=== PATIENT | male | born 1950 | race Caucasian/White ===

== ENCOUNTER → 2024-04-29 12:39 | Outpatient (REF) | payer OTHER, SELFPAY | LOC: RAD 12:39 | PROVIDERS: ATTENDING PHYSICIAN Nurse Practitioner Family | DX: M79.89 Other specified soft tissue disorders (principal) | CPT/HCPCS: 93971 ==

== ENCOUNTER → 2024-07-20 13:56 | Outpatient (REF) | payer OTHER, SELFPAY | LOC: RAD 13:56 | PROVIDERS: ATTENDING PHYSICIAN Internal Medicine Interventional Cardiology; FAMILY PHYSICIAN Nurse Practitioner Family | DX: I73.9 Peripheral vascular disease, unspecified (principal); I77.1 Stricture of artery | CPT/HCPCS: 93925; 93930 ==

== ENCOUNTER → 2024-07-23 10:34 | Outpatient (REF) | payer OTHER, SELFPAY | LOC: RCS 10:34 | PROVIDERS: ATTENDING PHYSICIAN Internal Medicine Interventional Cardiology; FAMILY PHYSICIAN Nurse Practitioner Family | DX: I10 Essential (primary) hypertension (principal); R00.2 Palpitations | CPT/HCPCS: 93306 ==

== ENCOUNTER → 2024-09-10 10:06 | Outpatient (REF) | payer OTHER, SELFPAY | LOC: RAD 10:06 | PROVIDERS: ATTENDING PHYSICIAN Surgery Vascular Surgery; FAMILY PHYSICIAN Nurse Practitioner Family | DX: R09.89 Other specified symptoms and signs involving the circulatory and respiratory systems (principal); I71.43 Infrarenal abdominal aortic aneurysm, without rupture | CPT/HCPCS: 76770; 93880 ==

== ENCOUNTER 2024-11-12 19:06 | Inpatient (IN) | payer OTHER, SELFPAY ==
[2024-11-12] VITALS (14 sets, daily range): BP systolic 109–212; BP diastolic 70–140; BMI 31.5; BMI 30.5
[2024-11-12 14:35] LABS: Hematocrit 31.5 % (39.0-52.0); Hemoglobin 10.3 g/dL (13.0-18.0); Mean Corp Hgb Conc. 32.7 g/dL (33.0-37.0); Mean Corpuscular Volume 77.4 fL (80.0-94.0); Nucleated Red Blood Cells % 0 % (-); Platelet Count 174 10^3/uL (130-400); Red Cell Dist. Width 16.4 % (11.5-14.5)
[2024-11-12 14:51] LABS: ALT (SGPT) 13 U/L (0-50); AST (SGOT) 19 U/L (17-59); Albumin 4.2 g/dl (3.5-5.0); Alkaline Phosphatase 80 U/L (38-126); Blood Urea Nitrogen 11 mg/dl (9-20); Calcium 9.4 mg/dl (8.4-10.2); Carbon Dioxide 26 mmol/L (22-30); Chloride 102 mmol/L (98-107); Glucose 118 mg/dl (70-99); Potassium 3.1 mmol/L (3.5-5.1); Sodium 139 mmol/L (135-145); Total Protein 7.2 g/dl (6.3-8.2); eGFR > 60.00
[2024-11-12 15:01] LABS: COVID-19 Antigen Negative (Negative)
--- NOTE | 2024-11-12 17:34 | ED.GENMED ---
History of Present Illness
General
Chief Complaint: Breathing Problem
Time Seen by Provider: 11/12/24 17:05
History of Present Illness
History of Present Illness:
74-year-old male presents the emergency department for evaluation of dry cough and shortness of breath for the past 3 days. He went to urgent care where his EKG was noted to be abnormal and thus he was sent to the emergency department. He notes
that he was started by his machinist set up on diltiazem 2 days ago due to frequent premature contractions. Denies any chest pain, fever, or chills. Cough is dry nonproductive
Inside Polisher is DCA Dr Shaw
Review of Systems
Review of Systems
Allergies reviewed?: Yes
All Other Systems: ROS reviewed and negative except as documented in HPI and ROS
Phy Exam
Physical Exam
Physical Exam:
GEN: Well appearing, NAD, WDWN
HEENT: Oral mucosa moist, no scleral icterus, positive JVD
Cardiac: Irregular rhythm, no murmur, controlled rate
Lung: No respiratory distress, no tachypnea, faint crackles in the bases bilaterally
MSK: No gross deformity or injuries, 1+ pitting edema bilateral lower extremities
Skin: Good color, no pallor or jaundice, no rashes
Neuro: AO x3, moves all extremities freely
Psych: Calm, cooperative
Scores
Heart Failure Risk
Heart Failure Risk Score: Not Applicable
Course
Orders/Labs/Results
Orders:
Orders
11/12/24 14:01
Electrocardiogram (*1) Urgent
Reason for Study: Chest Pain
EKG- Treatment ONCE
CR Chest - 2 Views Urgent
Comment:
Reason For Exam: sob/cough
11/12/24 14:15
COVID-19 Antigen Urgent
Source: Nasal Swab
Complete Blood Count/With Diff Urgent
Comprehensive Metabolic Panel Urgent
Magnesium Urgent
Comment: ADD ON
NT-proBNP Urgent
Troponin I Urgent
Comment: ADD ON
11/12/24 Dinner
Cholesterol Lowering
Cholesterol Lowering: Sodium, 2 Gram
11/12/24 17:28
Add On- LAB Urgent
Tests Added?: troponin
Potassium Chloride [KCl] 40 meq PO NOW STA
11/12/24 17:54
Potassium Chloride [KCl] 20 meq 0.9% Sodium Chloride 250 ml [Nss] 250 ml IV NOW
11/12/24 18:18
Admit/Transfer Patient As Directed
Co-Sign Provider:
Level of Care: Inpatient admission
Assign to:: IVU
Physician / Group: romulo
Diagnosis: chf exacerbation
Reason for Hospitalization: chf exacerbation
Expected length of stay greater than two midnights?: Yes
ELOS- Estimated Length of Stay in days: 2
I certify the patient meets the requirements for IP care: Yes
PRN Pain Medication Management As Directed
May give lesser potent ordered pain med per pt: Yes
preference::
Protocol:: Medication orders for pain may be administered in a
manner that supports deferring to patient preference
when the pt is:
- Requesting an ordered lesser potent pain medication.
Least to most potent pain medications are defined
as: acetaminophen < NSAID < tramadol < opioids
(morphine, oxycodone, hydromorphone).
- Requesting a lesser dose of the same medication IF
ORDERED.
- Requesting a less intrusive route of administration
if both routes are prescribed by the provider (PO <
IV).
11/12/24 18:19
Code Status As Directed
Resuscitation Status: Do not resuscitate
Reached after discussion with pt or family/Healthcare POA: Yes
DNR Bracelet Application ONCE
11/12/24 18:52
EKG [Electrocardiogram (*1)] Urgent
Reason for Study: Tachycardia
EKG- Treatment ONCE
11/12/24 18:57
Add On- LAB Stat
Tests Added?: ADD ON
11/12/24 18:58
Code Status As Directed
Resuscitation Status: Full Code
11/12/24 19:30
Ethacrynate Sodium [Edecrin] 50 mg Empty Viaflex Container 100 ml [Viaflex Empty Container] 0 ml IV ONCE
Furosemide [Lasix] 20 mg IV ONCE ONE
11/12/24 21:43
Heparin 5,000 units SC Q12
11/12/24 21:43
Activity As Directed
Activity Level: As Tolerated
Intake/ Output As Directed
Frequency: q12h
Patient Education As Directed
Type: CHF folder
Comment: give on admission. Document in Interdisciplinary Education record
Sleep Apnea Assessment by RN As Directed
Comment:
Physician Instructions:
Vital Signs As Directed
Frequency: Other
Additional Instructions:: Q12 or per unit guidelines if more frequent.
Weight As Directed
Frequency: Daily
Type of Scale: Standing Scale
Comment: Daily morning weight. If unable to stand, use balanced bed scale.
Weight As Directed
Frequency: Once
Type of Scale: Standing Scale
Comment: Upon Admission. If unable to stand, use balanced bed scale.
Pulse Ox/cont/shift [RESP] Routine
Quantity: 1
Special Instructions: Daily pulse oximetry at rest. If greater than 92% at rest also obtain pulse oximetry
while ambulating as tolerated.
DX Deep Vein Thrombosis Video Routine
11/13/24 06:00
Complete Blood Count/No Diff IN AM
11/13/24 08:00
Bumetanide [Bumex] 1 mg IV DAILY
11/15/24 11:00
DC Protocol for Telemetry ONCE
Abnormal Lab Results
11/12/24
14:15
RBC 4.07 L 10^6/uL
(4.70-6.10)
Hgb 10.3 L g/dL
(13.0-18.0)
Hct 31.5 L %
(39.0-52.0)
MCV 77.4 L fL
(80.0-94.0)
MCH 25.3 L pg
(27.0-31.0)
MCHC 32.7 L g/dL
(33.0-37.0)
RDW 16.4 H %
(11.5-14.5)
Absolute Neuts (auto) 6.9 H 10^3/uL
(1.4-6.5)
Absolute Monos (auto) 0.9 H 10^3/uL
(0.1-0.6)
Lymphocytes % 17.5 L %
(20.5-51.1)
Potassium 3.1 L mmol/L
(3.5-5.1)
Glucose 118 H mg/dl
(70-99)
Total Bilirubin 1.7 H mg/dl
(0.2-1.3)
Troponin I 0.125 H* ng/ml
11/12/24 14:15
11/12/24 14:15
Vital Signs
Initial and Last Documented VS:
Initial Vital Signs
Temp Pulse Resp BP Pulse Ox
98.8 F 78 20 121/99 95
11/12/24 13:57 11/12/24 13:57 11/12/24 13:57 11/12/24 13:57 11/12/24 13:57
Last Documented Vital Signs
Temp Pulse Resp BP Pulse Ox
98.4 F 89 20 188/85 95
11/12/24 21:09 11/12/24 23:33 11/12/24 21:09 11/12/24 23:33 11/12/24 21:09
Procedures
IV Access
Indication: RN unable to obtain and Physician skill needed
Performed by:: Gonzalez Mendez PA-C
Site:: R AC
Gauge:: 20
Ultrasound Guidance: Yes
MDM/Problems Addressed
MDM/Problems Addressed:
74-year-old male presenting with dry cough found to be in acute CHF evidenced by volume overload, pulmonary edema on chest x-ray, and elevated troponin proBNP. EKG initially notable for sinus with a right bundle branch block and frequent
ventricular ectopy however patient abruptly developed an intermittent tachycardia with couplets, triplets, and quick couplets of multifocal PVCs. Telemetry strips were then reviewed with cardiology on-call who recommends IV and oral beta-blockers
and electrolyte repletion which was already initiated with IV magnesium bolus and IV and oral potassium repletion. Patient will be admitted to the IVU for further management, diuresis was not initiated until after adequate repletion of electrolytes
Comment
Comment:
EKG independently interpreted by me shows normal sinus rhythm with frequent atrial and ventricular ectopy, similar to telemetry monitoring, no ST changes concerning for ischemia
*Pulse Oximetry
SaO2: 95
Oxygen Mode of Delivery: Room air
Patient hypoxic: no
*Critical Care Note
Total Time (30-74mins, 75-104mins- exclusive of procedures): 30 minutes
comment:
Critical care time: 30 minutes
Critical care time was exclusive of: Separately billable procedures, treating other patients, and teaching time
Critical care was necessary to treat or prevent imminent or life-threatening deterioration of the following conditions: Tachyarrhythmia, CHF
Critical care time spent personally by me on the following activities:
[x] Review of old charts
[x] Obtaining history from patient or surrogate
[x] Ordering and review of the laboratory studies
[x] Ordering and review of radiographic studies
[x] Ordering and performing treatments and interventions
[x] Patient patient's response to treatment
[x] Development of treatment plan with patient or surrogate
ED Attending Note
-
Portions of this chart may have been created with voice recognition software.� Occasional wrong word or��sound alike� substitutions may have occurred due to the inherent limitations of voice recognition software.
Discharge Plan
Departure
Patient Disposition: Admit
Date of Disposition: 11/12/24
Time of Disposition: 17:56
Admit to: Telemetry
Presentation/result/management discussed w/ accepting MD/DO: Hospitalist
Discharge Problem:
Acute heart failure with preserved ejection fraction (HFpEF), Acute hypokalemia
Interventions
Interventions:
*Risk Screen - Suicide Last Done: 11/12/24 13:57
*General Assessment Last Done: 11/12/24 13:57
*Neglect/Abuse Screening Last Done: 11/12/24 13:57
*ED- Fall Risk Assessment Last Done: 11/12/24 17:59
*ED COVID-19 Vaccine History Last Done: 11/12/24 21:18
*Nursing Disposition Last Done: 11/12/24 21:16
ED- Cardiac Assessment Last Done: 11/12/24 20:21
ED- Pulmonary Assessment Last Done: 11/12/24 20:21
Discharge Date and Time
Discharge Date/Time: 11/12/24 21:17
[2024-11-12] MEDS: KCL 40 MEQ PO (17:55)
--- NOTE | 2024-11-12 18:21 | HPS.HSE ---
Addendum entered and electronically signed by Thomas Grier MD 11/12/24 18:58:
Patient wants to be full code.
Original Note:
Family Physician
-
Family Physician: * NONE
Chief Complaint
-
shortness of breath
History of Present Illness
74-year-old male past medical history of paroxysmal atrial flutter, hypertension, hyperlipidemia, diabetes, prostate cancer status post radiation, COPD, osteoarthritis, carotid artery stenosis, PAD, abdominal aortic aneurysm, presenting with dry
nonproductive cough and shortness of breath for the past 2 days. Shortness of breath worse when lying down flat. He went to urgent care and EKG was noted to be abnormal and he was sent to the emergency room. He was started on diltiazem 2 days ago
by his carpentry specialist Dr. Shaw due to frequent PVCs. He was also given Lasix for 3 days by his carpentry specialist. He has increased lower extremity edema. Denies any chest pain, fevers or chills. Denies sore throat.
He did get blurry vision after taking Lasix and felt weird.
Medical History
Past Medical History
Past Medical History: Reports Other (paroxysmal atrial flutter, hypertension, hyperlipidemia, diabetes, prostate cancer status post radiation, COPD, osteoarthritis, carotid artery stenosis, PAD, abdominal aortic aneurysm)
Past Surgical History: Reports None
Social History
Tobacco: Former Smoker
Alcohol: None
Drug: None
Family History
Family History: Not pertinent
Allergies / Home Medications
Allergies reflects when Allergies were last updated in [facility].
Home Medications with original date entered in [facility]
Allergy/Medication List:
Allergies
Allergy/AdvReac Type Severity Reaction Status Date / Time
No Known Allergies Allergy Verified 11/12/24 14:00
Review of Systems
-
Constitutional: Reports No Symptoms
EENT: Reports No Symptoms
Respiratory: Reports See HPI
Cardiac: Reports See HPI
Abdomen/GI: Reports No Symptoms
: Reports No Symptoms
Musculoskeletal: Reports No Symptoms
Skin: Reports No Symptoms
Neurological: Reports No Symptoms
Endocrine: Reports No Symptoms
Hematologic/Lymphatic: Reports No Symptoms
Psych: Reports No Symptoms
Physical Exam
Vital Signs
Vital Signs
Temp Pulse Resp BP Pulse Ox
98.8 F 100 17 121/99 95
11/12/24 13:57 11/12/24 18:00 11/12/24 17:30 11/12/24 13:57 11/12/24 17:35
Physical Exam
General: Well Developed, Well Nourished and No Apparent Distress
HEENT: NormoCephalic, Moist mucous membranes and Atraumatic
Respiratory: Clear
Cardiac: S1/S2, Regular Rhythm and Peripheral Edema; No Murmur or Rub
GI: Soft, Non Tender, Non Distended and Normal Bowel Sounds; No Organomegaly
Rectal: Deferred by Provider
Musculoskeletal: No Clubbing, No Cyanosis and No Edema
Skin: No Rash
Neuro: Nonfocal/grossly intact
Laboratory Results
-
11/12/24 14:15
11/12/24 14:15
Laboratory Results
Total Bilirubin 1.7 mg/dl (0.2-1.3) H 11/12/24 14:15
AST 19 U/L (17-59) 11/12/24 14:15
ALT 13 U/L (0-50) 11/12/24 14:15
Alkaline Phosphatase 80 U/L (38-126) 11/12/24 14:15
Data Reviewed
-
Lab Data: Labs Reviewed by me
Old Records: Reviewed
Impression/Plan
-
IMPRESSION:
PLAN:
# Acute CHF exacerbation
- Chest x-ray shows subtle increased interstitial markings within both lungs with small bilateral pleural effusions,
- Cardiac BNP 7200
- COVID-negative
-Check I's and O's, daily weights
- Bumex 1 mg daily
- Cardiology consulted
# Recent PVCs
- Continue diltiazem
# Hypokalemia
- Replete potassium
- Check magnesium
Paroxysmal atrial flutter
-Continue diltiazem
Essential hypertension
Hyperlipidemia
Type 2 diabetes
Prostate cancer status post radiation
COPD
Former smoker
Osteoarthritis
Carotid artery stenosis
PAD
Abdominal aortic aneurysm
Chronic anemia
DNR/DNI
DVT prophylaxis�heparin
Cardiac diet
[2024-11-12] MEDS: KCL 260 MEQ IV (18:26)
[2024-11-12 18:47] LABS: Troponin I 0.125 ng/ml
--- NOTE | 2024-11-12 19:30 | W.PN.UPDATE ---
Addendum entered and electronically signed by Thomas Grier MD 11/12/24 20:51:
Patient also given Magnesium infusion.
Original Note:
Update Note
Progress Note Update
Patient developed asymptomatic tachycardia with telemetry monitoring showing PVCs, then transiently in narrow complex rhythm heart rate up to 150s and then heart rate went down to 80s. Cardiology was notified who recommended Lopressor, metoprolol
[address] of diltiazem. Patient will be upgraded to IVU.
[2024-11-12] MEDS: MAGNESIUM SULFATE 50 IV (19:32)
[2024-11-12] MEDS: TOPROL XL 50 MG PO (19:32)
[2024-11-12] MEDS: LOPRESSOR 5 MG IV (19:33)
[2024-11-12] MEDS: LASIX 20 MG IV (20:35)
[2024-11-12 21:31] LABS: Magnesium 1.7 mg/dl (1.6-2.3)
[2024-11-12] MEDS: HEPARIN 5000 UNITS SC (22:03)
[2024-11-13] VITALS (20 sets, daily range): BP systolic 120–202; BP diastolic 71–108
[2024-11-13 00:32] LABS: Blood Urea Nitrogen 12 mg/dl (9-20); Calcium 9.3 mg/dl (8.4-10.2); Carbon Dioxide 28 mmol/L (22-30); Chloride 103 mmol/L (98-107); Estimated Creatinine Clearance 67 ml/min; Glucose 132 mg/dl (70-99); Magnesium 1.8 mg/dl (1.6-2.3); Potassium 3.2 mmol/L (3.5-5.1); Sodium 140 mmol/L (135-145); eGFR > 60.00
[2024-11-13] MEDS: MAGNESIUM SULFATE 50 IV (01:18)
[2024-11-13] MEDS: BUMEX 1 MG IV ×2 (01:30→09:33)
[2024-11-13] MEDS: KCL 270 MEQ IV (01:30)
[2024-11-13] MEDS: MORPHINE SULFATE 1 MG IV (01:32)
--- NOTE | 2024-11-13 01:46 | PTCARENOTE ---
Received pt into room 2243 from ED RN via stretcher @ approx 2100. Tele applied to pt, SR with BBBC and frequent PVC's. pt denies any CP. pt GONSALVES, 2L02 applied, sating 94%. HR 80's, BP 170's-180's/80's-90's. Manuela Collins NP made aware. Instructed
RN to keep pt bedrest for now. Repeat mag and K labs ordered and obtained. Resulted as K 3.2 and mag 1.8. CORRECTIONAL MAINTENANCE TECHNICIAN ordered IV K and mag. pt wheezy, and dyspneic. RT and CORRECTIONAL MAINTENANCE TECHNICIAN at bedside. Morphine and Bumex orders obtained/carried out--see MAY. Condom
catheter applied to pt to maintain bedrest status. pt resting comfortably. Call rihcmond within reach.
[2024-11-13] MEDS: LOPRESSOR 100 MG PO ×3 (03:09→20:07)
[2024-11-13] MEDS: APRESOLINE 10 MG IV ×3 (05:20→21:18)
--- NOTE | 2024-11-13 05:28 | PTCARENOTE ---
pt BP @0300 179/83, Manuela Collins NP ordered one time dose of PO Lopressor, administered to pt. @ approx 0515 pt BP remains elevated 189/91, PRN hydralazine administered per order-- see MAR for further details.
[2024-11-13 06:30] LABS: Hematocrit 31.2 % (39.0-52.0); Hemoglobin 10.5 g/dL (13.0-18.0); Mean Corp Hgb Conc. 33.7 g/dL (33.0-37.0); Mean Corpuscular Volume 76.5 fL (80.0-94.0); Platelet Count 179 10^3/uL (130-400); Red Cell Dist. Width 16.3 % (11.5-14.5)
[2024-11-13 06:47] LABS: ALT (SGPT) 14 U/L (0-50); AST (SGOT) 19 U/L (17-59); Albumin 4.1 g/dl (3.5-5.0); Alkaline Phosphatase 88 U/L (38-126); Blood Urea Nitrogen 13 mg/dl (9-20); Calcium 9.4 mg/dl (8.4-10.2); Carbon Dioxide 25 mmol/L (22-30); Chloride 103 mmol/L (98-107); Estimated Creatinine Clearance 74 ml/min; Glucose 170 mg/dl (70-99); Potassium 3.5 mmol/L (3.5-5.1); Sodium 140 mmol/L (135-145); Total Protein 7.3 g/dl (6.3-8.2); eGFR > 60.00
--- NOTE | 2024-11-13 07:03 | W.PN.UPDATE ---
Update Note
Progress Note Update
K+ and Mag repleted twice. SOB but speaks in complete sentences without difficulty. Added hydralazine IV for prn SBP >180. Use R arm only. PVCs on tele. Bumex x1 overnight. Cards consult. Metoprolol 100 mg x1 overnight. 91% RA added O2 2L. HR
increases to 120s with activity. Encouraged him to stay in bed for the night.
[2024-11-13 07:06] LABS: Troponin I 0.105 ng/ml
--- NOTE | 2024-11-13 07:30 | PTCARENOTE ---
Assumed care of pt from prev nsg shift; Pt AAOx3 w/no c/o CP or SOB. Pt w/VSS w/HR in the 90's & BP 177/75. Pt is SR w/freq PVC's on telemetry monitoring. Pt states he does feel 'fluttering in his heart' when he has PVC's, but reports no CP or
dizziness. Discussed pt's med list w/pt & list updated by this RN after speaking further w/Cardiology HAND TUBE BENDER in to see pt. Pt advised of plan of care for the day. Pt w/call [place] within reach.
--- NOTE | 2024-11-13 07:36 | W.PN.HOSP.TC ---
Today's Communication/Plan
-
check echo
start farxiga
check iron studies
ISS
[id number]
Assessment / Plan
Assessment / Plan
74-year-old male past medical history of paroxysmal atrial flutter, hypertension, hyperlipidemia, diabetes, prostate cancer status post radiation, COPD, osteoarthritis, carotid artery stenosis, PAD, abdominal aortic aneurysm, presented with dry
nonproductive cough, LE edema and shortness of breath.
# Acute HFpEF exacerbation
# elevated trops
- Chest x-ray shows subtle increased interstitial markings within both lungs with small bilateral pleural effusions,
- Cardiac BNP 7290
- COVID-negative
- Check I's and O's, daily weights
- Bumex 1 mg IV daily; lost 3 lbs overnight
- Start Farxiga
- lopressor 100mg bid and amio 400mg bid per cardio
- check echo
- start asa 81
Echocardiogram July 23, 2024:LVEF of 56%, mild mitral regurgitation and no other significant abnormalities.
# Elevated trops
- trops peaked 0.125:Suspect nonischemic myocardial injury secondary to acute heart failure exacerbation and atrial arrhythmias with rapid ventricular response
# Hypokalemia
# hypomagnesia
- Repleted; goal to Keep K greater than 4, mag greater than 2
#Paroxysmal atrial flutter/atrial tachycardia with rapid ventricular response
-Defer addition of eliquis to cardio
#Essential hypertension
#Hyperlipidemia
- continue home lipitor
#Type 2 diabetes
-hold metformin and glipizide.
-iss
#Prostate cancer status post radiation
#COPD
#Former smoker
#Osteoarthritis
#Carotid artery stenosis
#PAD
#Abdominal aortic aneurysm
#Chronic anemia: likely multifactorial
-start iron
Full code
DVT prophylaxis�heparin
Cardiac diet
Anticipated Discharge: 24 - 48 hours
Subjective/Interval History
-
Date of Service: November 13, 2024
seen and examined at bedside. Tachy with elevated blood pressure. afebrile. offers no new complaints
Objective Data
-
Labs:
Laboratory Results
11/13/24 11/13/24
00:02 06:16
WBC 7.8
Hgb 10.5 L
Hct 31.2 L
Plt Count 179
Sodium 140 140
Potassium 3.2 L 3.5
Chloride 103 103
Carbon Dioxide 28 25
BUN 12 13
Creatinine 0.9 0.8
Glucose 132 H 170 H
Calcium 9.3 9.4
Total Bilirubin 2.2 H
AST 19
ALT 14
Alkaline Phosphatase 88
Vital Signs:
Vital Signs
Temp Pulse Resp BP Pulse Ox
98.2 F 92 14 177/75 97
11/13/24 06:57 11/13/24 07:15 11/13/24 06:57 11/13/24 06:17 11/13/24 06:57
I&O
11/12/24 11/13/24 11/14/24
06:59 06:59 06:59
Output Total 1700 / 1700
Balance -1700 / -1700
Review of Systems
-
History Source: Patient
All other systems: Reviewed and negative (unless documented)
Physical Exam
-
General: Well Developed and No Apparent Distress
HEENT: Normocephalic and Moist Mucous Membranes
Respiratory: Decreased Breath Sounds
Cardiac: S1/S2 and Tachycardic
GI: Soft and Nontender
Musculoskeletal: Edema, Right Lower Extrem and Edema, Left Lower Extrem
Skin: Warm and Dry
Neuro: Awake, Alert and Oriented
Psych: Calm
Data Reviewed
-
Diagnostic Radiology: Report Reviewed by me
Labs: Labs Reviewed by me, Discussed with Physician and Discussed with Patient
--- NOTE | 2024-11-13 07:55 | CON.CAR ---
Addendum entered and electronically signed by Shahram Walden MD 11/13/24 09:14:
I saw and examined the patient.
The Machine Operator Assistant's note was reviewed and I agree with the note.
Comment:
GEN: No distress, awake, Ox3
HEENT: supple, anicteric, mmm
LUNGS: Decreased breath sound
CV: Reg with ectopy, S1/S2, 1/6 syst LSB, S3+
ABD: soft, BS+, NT/ND
EXT: + edema
NEURO: Gross non-focal
SKIN: No rash
PLan:
74-year-old male with past medical history of hypertension, hyperlipidemia, SVT, premature beats, diabetes, peripheral vascular disease, prostate cancer and right bundle branch block presents with 3 to 4 days of shortness of breath, orthopnea,
weight gain, and lower extremity edema. He was recently started on Lasix 2 weeks ago and felt poorly and stopped the medication. He was seen by electrophysiology for palpitations/atrial tachycardia and was placed on diltiazem. He has had
continued issues with electrolyte abnormalities. Upon arrival in the emergency room he was found to have a tachycardia possibly atrial flutter/atrial tachycardia with right bundle branch block. He converted to sinus rhythm but continues to have
paroxysms of irregular heartbeat.
He presents with acute on chronic heart failure with preserved ejection fraction, abnormal troponin and continued atrial arrhythmias.
Start diuresis with IV Bumex.
He he currently remains in sinus rhythm but continues to have episodes of atrial tachycardia/possibly atrial flutter. Will start anticoagulation at this time. I suspect on one of his EKGs he is in an atrial flutter. Will review with
electrophysiology. Will stop diltiazem and continue metoprolol. Will start amiodarone 400 mg p.o. twice daily to help maintain sinus rhythm.
His troponin is 0.1. I suspect this is a nonischemic myocardial injury but we will continue to follow. Check echocardiogram to reevaluate LVEF. Previous echo this year had a preserved ejection fraction. If ejection fraction is markedly reduced
would consider ischemic evaluation including cardiac cath.
Blood pressure remains elevated. Continue metoprolol for now. Pending results of echo will consider VERONICA/ARB versus spironolactone. Creatinine is normal.
Continue Farxiga. Start aspirin 81 mg daily.
Original Note:
Consultation
Consultation Request
Date/Time Consultation Requested: 11/12/2024
Date/Time Consultation Performed: 11/13/2024
Requesting Provider: Dr. Grier
Performing Provider: Tesha May PA-C for Dr. Walden
Reason for Consultation: Heart failure, abnormal troponin
Medical History
-
History of Present Illness:
Patient is a 74-year-old male with past medical history significant for hypertension, hyperlipidemia, PVCs, PAC, atrial tachycardia, left subclavian stenosis, type 2 diabetes, diabetic/peripheral neuropathy, prostate cancer status post XRT,
anxiety/depression, multi nodule goiter, right bundle branch block, chronic anemia and obesity who presented to emergency department 11/12/2024 with worsening shortness of breath, lower extremity edema, orthopnea/PND and weight gain. Seen in
cardiology office 11/03/2024 and was felt to have evidence of mild volume overload and was started on Lasix. Patient reports he only took 3 days of medication and felt weird and had some blurry vision so he stopped taking. He was also transition
from nifedipine to diltiazem due to complaints of palpitations and PACs/PVCs and atrial tachycardia on outpatient monitor. Patient reports he started taking this 3 days prior to admission. Chest x-ray showed increased interstitial markings
concerning for heart failure with small bilateral pleural effusions. proBNP elevated at 7290. EKG demonstrated sinus rhythm with right bundle branch block and PVCs. Troponin initially elevated at 0.125. Found to have electrolyte derangement with
hypokalemia with potassium of 3.1 and hypomagnesemia. Electrolytes with ongoing repletion. Patient was given IV Lasix 20 mg in emergency department then later that evening IV Bumex x 1. Patient developed asymptomatic tachycardia on monitor with
narrow complex rhythm with heart rates in the 150s. He was provided IV Lopressor with improvement of heart rate.
At time of this evaluation patient resting comfortably in bed on oxygen. Reports good diuretic response to IV diuresis. Feels edema is significantly better. Continues to have orthopnea and PND and had difficulty sleeping last night.
Past medical history:
Paroxysmal atrial flutter
Paroxysmal atrial tachycardia
PVCs/PACs
Right bundle branch block
Hypertension
Hyperlipidemia
Left subclavian stenosis
Type 2 diabetes
Diabetic/peripheral neuropathy
Prostate cancer status post XRT 2014
Anxiety depression
Multinodular goiter
Chronic anemia
Past Medical History
Past Medical History: Other (See HPI)
Past Surgical History: None
Social History
Tobacco: Former Smoker
Alcohol: None
Drug: None
Employment: Retired
Family History
Family History: Other (Father had cardiac disease and from complications during heart surgery. Mother at 70 due to melanoma with metastasis to brain)
Allergies / Home Medications
Allergy/AdvReac Type Severity Reaction Status Date / Time
No Known Allergies Allergy Verified 11/12/24 14:00
�Medication �Instructions �Recorded �Confirmed �Type
aspirin 325 mg tablet 325 mg PO DAILY 11/12/24 11/13/24 History
atorvastatin 40 mg tablet 40 mg PO DAILY 11/12/24 11/13/24 History
diltiazem HCl 120 mg capsule,24 120 mg PO DAILY 11/12/24 11/13/24 History
hr,extended release
glipizide 5 mg tablet 5 mg PO DAILY 11/12/24 11/13/24 History
metformin 1,000 mg tablet 1,000 mg PO BID 11/12/24 11/12/24 History
metoprolol tartrate 100 mg tablet 100 mg PO BID 11/12/24 11/12/24 History
tamsulosin 0.4 mg capsule 0.4 mg PO DAILY 11/12/24 11/12/24 History
gabapentin 300 mg capsule 300 mg PO BID 11/13/24 11/13/24 History
Review of Systems
-
History Source: Patient
All other systems: Negative unless noted
Physical Exam
Vital Signs
Temp Pulse Resp BP Pulse Ox
98.2 F 92 14 177/75 97
11/13/24 06:57 11/13/24 07:15 11/13/24 06:57 11/13/24 06:17 11/13/24 06:57
GEN: No distress, awake, Ox3, sitting in bed wearing oxygen
HEENT: supple, anicteric, mmm
LUNGS: Fine crackles and mildly decreased at bases otherwise CTA, no wheezes/rales, wearing oxygen 2 L
CV: Reg with occasional ectopy, S1/S2, no murmur, rub or gallop
ABD: soft, BS+, NT/ND
EXT: +1 right lower extremity edema, trace left lower extremity edema
NEURO: Gross non-focal
SKIN: No rash, warm, dry, pink
Lab Results
11/13/24 06:16
11/13/24 06:16
Troponin I 0.105 ng/ml H* 11/13/24 06:16
Etb-P-Fzeonkcfxav Pept 7290 pg/ml 11/12/24 14:15
Impression / Plan
-
PCP: Marianne Pacheco
Industrial Relations Officer: Dominique Shaw
Impression:
Presented 11/12/2024 with worsening shortness of breath, lower extremity edema, orthopnea/PND and weight gain
Acute heart failure with preserved ejection fraction, proBNP 7290
Abnormal troponin, peak 0.125
Hypokalemia
Hypomagnesemia
Paroxysmal atrial flutter/atrial tachycardia with rapid ventricular response
Paroxysmal atrial flutter
Paroxysmal atrial tachycardia
PVCs/PACs
Right bundle branch block
Hypertension
Hyperlipidemia
Left subclavian stenosis
Type 2 diabetes
Diabetic/peripheral neuropathy
Prostate cancer status post XRT 2014
Anxiety depression
Multinodular goiter
Chronic anemia
7 day Outpatient monitor starting June 26, 2024: Predominantly normal sinus rhythm, 104 episodes of nonsustained atrial tachycardia, 7% PACs, 9% PVCs with 33 patient triggered symptom events correlating with atrial tachycardia PACs and PVCs.
Echo 11/13/2024:pending
Echocardiogram July 23, 2024:LVEF of 56%, mild mitral regurgitation and no other significant abnormalities.
Echo from 2022: LVEF 50-55% mild MR, mild LAE, trace TR, mild to moderate aortic sclerosis
Plan:
-Presented 11/12/2024 with worsening shortness of breath, lower extremity edema, orthopnea/PND and weight gain.
-Acute heart failure with preserved ejection fraction, proBNP 7290
Ongoing diuresis with IV Bumex. Patient reports good response with at least 4 to 5 pound weight loss overnight.
Ongoing repletion and monitoring of electrolytes. Keep K greater than 4, mag greater than 2
Check echocardiogram
New to [facility] this admission, continue beta-nadiya.
-Abnormal troponin, peak 0.125
EKG shows sinus rhythm with right bundle branch block without ischemia and patient denies chest pain
Suspect nonischemic myocardial injury secondary to acute heart failure exacerbation and atrial arrhythmias with rapid ventricular response
Will check echocardiogram. If abnormal will need to move forward with ischemic evaluation. If unchanged from July 2024 can consider outpatient ischemic evaluation
Continue atorvastatin
-Patient has history of atrial arrhythmias on prior outpatient monitor. Previously had atrial tachycardia. EKG during this admission more consistent with atrial flutter with rapid ventricular response
Patient already on high dose Lopressor at 100 mg twice a day. Diltiazem not ideal medication given acute heart failure.
Start amiodarone 400 mg twice a day
Monitor QTc
Will need anticoagulation with Eliquis 5 mg twice a day. Will hold on starting this until echo completed in case patient needs invasive ischemic workup. Discontinue aspirin once anticoagulation started
Case management consultation for cost analysis for Eliquis
-Patient's blood pressures was elevated overnight. Reports blood pressures normally at home in the 110's-120's/70's. Continue Lopressor 100 mg BID. Patient was on nifedipine as outpatient. Would hold on calcium channel nadiya. Can utilize
hydralazine if needed. To consider adding VERONICA-I/ARB if blood pressure does not improve with diuresis. Patient thinks anxiety may be can playing a part in his elevated blood pressure this admission
Plan discussed with patient, nursing, hospitalist/resident
[facility] 11/13/2024:
Patient is a 74-year-old male with past medical history significant for hypertension, hyperlipidemia, PVCs, PAC, atrial tachycardia, left subclavian stenosis, type 2 diabetes, diabetic/peripheral neuropathy, prostate cancer status post XRT,
anxiety/depression, multi nodule goiter, right bundle branch block, chronic anemia and obesity who presented to emergency department 11/12/2024 with worsening shortness of breath, lower extremity edema, orthopnea/PND and weight gain. Seen in
cardiology office 11/03/2024 and was felt to have evidence of mild volume overload and was started on Lasix. Patient reports he only took 3 days of medication and felt weird and had some blurry vision so he stopped taking. He was also transition
from nifedipine to diltiazem due to complaints of palpitations and PACs/PVCs and atrial tachycardia on outpatient monitor. Patient reports he started taking this 3 days prior to admission. Chest x-ray showed increased interstitial markings
concerning for heart failure with small bilateral pleural effusions. proBNP elevated at 7290. EKG demonstrated sinus rhythm with right bundle branch block and PVCs. Troponin initially elevated at 0.125. Found to have electrolyte derangement with
hypokalemia with potassium of 3.1 and hypomagnesemia. Electrolytes with ongoing repletion. Patient was given IV Lasix 20 mg in emergency department then later that evening IV Bumex x 1. Patient developed asymptomatic tachycardia on monitor with
narrow complex rhythm with heart rates in the 150s. He was provided IV Lopressor with improvement of heart rate.
At time of this evaluation patient resting comfortably in bed on oxygen. Reports good diuretic response to IV diuresis. Feels edema is significantly better. Continues to have orthopnea and PND and had difficulty sleeping last night.
Data Reviewed
-
EKG: Report Reviewed by me, Discussed with Physician, Discussed with Nurse and Discussed with Patient
Radiology: Report Reviewed by me, Discussed with Physician, Discussed with Nurse and Discussed with Patient
Labs: Labs Reviewed by me, Discussed with Physician, Discussed with Nurse and Discussed with Patient
Old Records: Reviewed
[2024-11-13 08:54] LABS: Iron 35 ug/dl (49-181)
[2024-11-13 09:03] LABS: Total Iron Binding Capacity 363 ug/dl (261-462)
[2024-11-13] MEDS: FARXIGA 10 MG PO (09:31)
[2024-11-13] MEDS: FLUSH (NSS) 1 FLUSH IV (09:31)
[2024-11-13] MEDS: PACERONE 400 MG PO ×2 (09:32→20:07)
[2024-11-13] MEDS: HEPARIN 5000 UNITS SC ×2 (09:32→20:07)
--- NOTE | 2024-11-13 10:45 | CM ---
Reviewed chart. Met with Mr. Paulino to review discharge plans. He states prior to admission to resides with his sister in a one and half story home without any steps to enter. He states he has one step to get to his bedroom and full bathroom. He
states he does not have a bathroom on the first floor. He states prior to admission he was independent with ambulation and adls. He states he does not have any DME in the home. He states he has a prescription plan and uses [facility] in
[place]. Telephone call to [employer] ,[phone] to check on his coverage for Eliquis 5 mg po bid. His co-pay would be $12.15 for a 30 day supply and also $12.15 for a 90 day supply. He is agreeable to the co-pay. He states he has never needed VNA
services or SNF/Rehab. Medical work-up in progress. The discharge plan is to return home with his sister when medically stable.
[2024-11-13 10:54] LABS: Ferritin 88.0 ng/ml (17.9-464.0)
[2024-11-13 11:19] LABS: Hepatitis C Antibody Negative (Negative)
[2024-11-13 11:26] LABS: Folate 10.9 ng/ml (2.76-20); Vitamin B12 228 pg/ml (239-931)
[2024-11-13 11:42] LABS: Glucose - Point of Care 168 mg/dl (70-99)
[2024-11-13] MEDS: LOW STRENGTH ASPIRIN 81 MG PO (12:10)
[2024-11-13] MEDS: FLUSH (NSS) 2 FLUSH IV ×2 (12:11→15:55)
[2024-11-13] MEDS: NOVOLOG FLEXPEN-LOW RESISTANCE SC ×2 (13:03→16:43)
[2024-11-13 15:03] LABS: Glucose - Point of Care 174 mg/dl (70-99)
[2024-11-13] MEDS: FERRLECIT 110 MG IV (15:54)
[2024-11-13 16:41] LABS: Glucose - Point of Care 151 mg/dl (70-99)
[2024-11-13 21:16] LABS: Glucose - Point of Care 139 mg/dl (70-99)
--- NOTE | 2024-11-13 23:46 | PTCARENOTE ---
Patient received at change of shift resting in the bed. Sinus rhythm on telemetry with frequent PVCs and runs of Atach. BP elevated, PRN hydralazine given as ordered. Oxygen saturation 94-97% on room air. Plan of care discussed. Discussed amiodarone
and HF booklet. The patient denies pain. Call richmond within reach. Care ongoing.
[2024-11-14] VITALS (21 sets, daily range): BP systolic 138–223; BP diastolic 83–177; PULSE 84–93; BMI 30.1
[2024-11-14] MEDS: LOPRESSOR 5 MG IV ×2 (03:21→04:40)
[2024-11-14 04:32] LABS: Hematocrit 34.6 % (39.0-52.0); Hemoglobin 11.4 g/dL (13.0-18.0); Mean Corp Hgb Conc. 32.9 g/dL (33.0-37.0); Mean Corpuscular Volume 76.0 fL (80.0-94.0); Platelet Count 231 10^3/uL (130-400); Red Cell Dist. Width 16.0 % (11.5-14.5)
[2024-11-14] MEDS: VALIUM INJECTION 2 MG IV ×2 (04:33→05:46)
[2024-11-14 04:45] LABS: Blood Urea Nitrogen 14 mg/dl (9-20); Calcium 10.1 mg/dl (8.4-10.2); Carbon Dioxide 23 mmol/L (22-30); Chloride 101 mmol/L (98-107); Estimated Creatinine Clearance 66 ml/min; Glucose 186 mg/dl (70-99); Potassium 3.0 mmol/L (3.5-5.1); Sodium 139 mmol/L (135-145); eGFR > 60.00
[2024-11-14 05:04] LABS: Glucose - Point of Care 209 mg/dl (70-99)
--- NOTE | 2024-11-14 05:06 | PTCARENOTE ---
At approximately 0230 the patient wandered out of room without his heart monitor on and fully dressed, asking where he was. Stated his sister was coming to visit him. Patient directed back to room, heart monitor reapplied. Patient alert to self and
time, had to be reoriented to place. Patient wanted to be shown outside the building to prove that he was in the hospital. Patient showed staff ID badges to show him that he is in the hospital with staff. When HR monitor was reapplied the HR was
noted to be up in the 160s. Pox 96% on room air. BP 157/83. Patient ordered PRN Metoprolol IV for HR >120. When attempting to administer the medication the patient became agitated and refused for medication to be administered. The patient then left
the room stating he wanted to leave. Addie SHEET METAL OPERATOR and CT surgery KELSEY came to bedside to speak with patient. [place] DAINA Garza spoke with patient. Patient was adamantly against the IV medication, after speaking with emergency contact of patient, Cristiane
(sister), and addie LAMA the patient was agreeable with the IV metoprolol which was then administered. The patient was assisted out of bed to the bathroom to void and given ice chips. The patient allowed blood to be drawn while he sat in the chair.
The patient stated he was hot, temp in the room turned down and a fan was obtained for the patient.
The patient's HR again increased to the 160s and was noted to be hypertensive. An additional dose of IV metoprolol was ordered. When the medication was going to be administered the patient became agitated and aggressive. Walked out of the room
stating he was going to leave and how he did know he was in the hospital. He wanted to go outside to see the hospital from the outside to prove he was in the hospital. The patient walked down to the waiting room and was asking for the exit stating
he was leaving. The patient became belligerent with staff, yelling at multiple staff members. Deescalation was attempted by several staff members. The patient dialed 911 several times stating he was told he was in the hospital and was being given
medication he didn't want. The patient's HR was noted to be in the 170s and SBP BP up to 200. The patient also stated he was being held hostage. A code purple was called. Security and the nursing special assemblies supervisor came to the waiting area to attempt to
deescalate the patient. The patient was asking for a knife and refused to state what he would do with a weapon. The patient was walked back to his room. Restraints were ordered and applied. One time dose of Valium was ordered and given. Discussed
with patient purpose of restraints and why they were placed. The patient continued to ask for a knife. Patient repositioned in the bed for comfort, attempted to use urinal, and given gingerale for comfort.
Discussed with house SHEET METAL OPERATOR regarding multiple comments about the knife and the patient was made a one to one. The patient eventually admitted that the knife was to use on himself. A consult for psychiatry was placed. Call richmond within reach. Bed alarm
armed. Care ongoing.
[2024-11-14] MEDS: TRANDATE 5 MG IV (05:18)
[2024-11-14] MEDS: KCL 270 MEQ IV ×2 (05:22→16:24)
--- NOTE | 2024-11-14 05:25 | PTCARENOTE ---
BP 215/112, House ROASTER OPERATOR Kayla aware. One time dose of Labetalol IV ordered and given.
--- NOTE | 2024-11-14 06:00 | W.PN.UPDATE ---
Update Note
Progress Note Update
Notified by nurse patient tachycardic 150-160s BP 200s/100s. Patient woke up confused and agitated. Patient refusing medications, leaving his room, wanting to get out of the hospital, not redirectable. Patient's sister on the phone attempted to
redirect patient, ultimately aimee nash was called. Of note patient was tearful and mentioned his significant other passed recently and as well as another family member. He also asked for a knife, when asked why he alluded to harming himself.
On assessment he AAOX2-3, forgetful. No focal deficit noted.
Rx 5mg IV Metoprolol in addition to 5mg PRN dose. Total of 4mg IV valium. 5mg IV Labetalol. Minimal improvement on HR and BP.
Discussed case with cardiology science liaison - patient to take his AM cardiac meds and continue to monitor BP. Rx Eliquis 5mg BID, HOLD Prn Hydralazine.
Rx Psych consult, Suicide precaution
--- NOTE | 2024-11-14 07:06 | W.PN.HOSP.TC ---
Today's Communication/Plan
-
psych eval
dc asa
start eliquis
nifedipine per cardio
Assessment / Plan
Assessment / Plan
74-year-old male past medical history of paroxysmal atrial flutter, hypertension, hyperlipidemia, diabetes, prostate cancer status post radiation, COPD, osteoarthritis, carotid artery stenosis, PAD, abdominal aortic aneurysm, presented with dry
nonproductive cough, LE edema and shortness of breath.
# Acute HFpEF exacerbation
# elevated trops
- Chest x-ray shows subtle increased interstitial markings within both lungs with small bilateral pleural effusions,
- Cardiac BNP 7290
- COVID-negative
- Check I's and O's, daily weights; stable
- Bumex 1 mg IV daily; continue per cardio
- continue Farxiga
- lopressor 100mg bid and amio 400mg bid per cardio for now; 200mg bid on dc for 1 month and daily afterwards
- echo results noted. Started on eliquis; d/c asa
Echo 11/13/24 with preserved ejection fraction and mild to moderate valvular disease.
Echocardiogram July 23, 2024:LVEF of 56%, mild mitral regurgitation and no other significant abnormalities.
# Elevated trops
- trops peaked 0.125:Suspect nonischemic myocardial injury secondary to acute heart failure exacerbation and atrial arrhythmias with rapid ventricular response
# Hypokalemia
# hypomagnesia
- Replete; goal to Keep K greater than 4, mag greater than 2
#Paroxysmal atrial flutter/atrial tachycardia with rapid ventricular response
-started eliquis
#Essential hypertension
- uncontrolled with current meds
- ??nifedipine
#Hyperlipidemia
- continue home lipitor
#Type 2 diabetes
-hold metformin and glipizide.
-iss
#Prostate cancer status post radiation
#COPD
#Former smoker
#Osteoarthritis
#Carotid artery stenosis
#PAD
#Abdominal aortic aneurysm
#Chronic anemia: likely multifactorial
-start iron
Full code
DVT prophylaxis�heparin
Cardiac diet
Anticipated Discharge: Within 24 hours
Subjective/Interval History
-
Date of Service: November 14, 2024
seen and examined at bedside. overnight events noted. Awake and alert in am. afebrile. bp remains elevated
Objective Data
-
Labs:
Laboratory Results
11/14/24
04:09
WBC 9.8
Hgb 11.4 L
Hct 34.6 L
Plt Count 231 D
Sodium 139
Potassium 3.0 L
Chloride 101
Carbon Dioxide 23
BUN 14
Creatinine 0.9
Glucose 186 H
Calcium 10.1
Vital Signs:
Vital Signs
Temp Pulse Resp BP Pulse Ox
98.1 F 94 16 175/100 95
11/14/24 07:03 11/14/24 07:03 11/14/24 07:03 11/14/24 07:03 11/14/24 07:03
I&O
11/13/24 11/14/24 11/15/24
06:59 06:59 06:59
Intake Total 480 / 480
Output Total 1700 / 1700 600 / 600
Balance -1700 / -1700 -120 / -120
Review of Systems
-
History Source: Patient
All other systems: Reviewed and negative (unless documented)
Physical Exam
-
General: Well Developed and No Apparent Distress
HEENT: Normocephalic and Moist Mucous Membranes
Respiratory: Non Labored Respirations and Decreased Breath Sounds
Cardiac: S1/S2 and Tachycardic
GI: Soft and Nontender
Musculoskeletal: Edema, Right Lower Extrem and Edema, Left Lower Extrem
Skin: Warm and Dry
Neuro: Awake, Alert and Oriented
Psych: Calm
Data Reviewed
-
Labs: Labs Reviewed by me, Discussed with Physician and Discussed with Patient
--- NOTE | 2024-11-14 07:44 | W.PN.CARDCBS ---
Addendum entered and electronically signed by Shahram Walden MD 11/14/24 09:47:
I saw and examined the patient.
The Dairy Husbandman's note was reviewed and I agree with the note.
Comment:
GEN: No distress, awake, Ox3
HEENT: supple, anicteric, mmm
LUNGS: CTA, no wheezes/rales
CV: Reg, S1/S2, 1/6 syst LSB, no gallop
ABD: soft, BS+, NT/ND
EXT: No edema
NEURO: Gross non-focal
SKIN: No rash
Plan:
Events overnight noted. Patient is now awake and oriented. Possible ing.
Continue amiodarone load. Will discharge on amiodarone 20 mg p.o. twice daily for 1 month then 200 mg daily. Continue Eliquis. Still having sinus rhythm with atrial arrhythmias but overall improved
Blood pressure is elevated will add nifedipine.
Psychiatric evaluation today.
Will continue IV Bumex for now. Replete potassium. Creatinine remains normal.
Continue Farxiga and metoprolol. Echo with preserved ejection fraction and mild to moderate valvular disease.
Hopeful for discharge within next 12-24 hours.
Original Note:
Today's Communication / Plan
-
Events from late last night and early this morning reviewed by me, he is now lucid, pleasant and conversant and asking to go home
Being loaded with amiodarone 400 mg BID and would likely continue amiodarone 200 mg BID for the first month after discharge and then decrease to once daily thereafter
New to Eliquis and it should only cost him $12 a month
Weight is down at least 3 lbs, possibly more depending on accuracy of the admission weight overall oxygenation has improved and recheck proBNP ordered by me is pending. He was not taking a diuretic prior to admission
Pending psychiatric evaluation would agree with patient about consideration for discharge
Impression / Plan
-
PCP: Marianne Pacheco
Insurance Sales Agent: Dominique Shaw
Impression:
Presented with worsening shortness of breath, lower extremity edema, orthopnea/PND and weight gain 11/12/2024
Acute heart failure with preserved ejection fraction, proBNP 7290
Abnormal troponin, peak 0.125
Hypokalemia
Hypomagnesemia
Paroxysmal atrial flutter/atrial tachycardia with rapid ventricular response
Paroxysmal atrial flutter
Paroxysmal atrial tachycardia
PVCs/PACs
Right bundle branch block
Hypertension
Hyperlipidemia
Left subclavian stenosis
Type 2 diabetes
Diabetic/peripheral neuropathy
Prostate cancer status post XRT 2014
Anxiety depression
Multinodular goiter
Chronic anemia
7 day Outpatient monitor starting June 26, 2024: Predominantly normal sinus rhythm, 104 episodes of nonsustained atrial tachycardia, 7% PACs, 9% PVCs with 33 patient triggered symptom events correlating with atrial tachycardia PACs and PVCs.
Echo from 2022: LVEF 50-55% mild MR, mild LAE, trace TR, mild to moderate aortic sclerosis
Echocardiogram 07/23/24:LVEF of 56%, mild mitral regurgitation and no other significant abnormalities.
Echo 11/13/2024: EF 60%, normal RV size and function, mild , mild MR, mild to moderate TR with PAP 52 mmHg
Plan:
-Presented 11/12/2024 with worsening shortness of breath, lower extremity edema, orthopnea/PND and weight gain.
-Weight is down at least 3 lbs, possibly more since admission depending on the accuracy of the admission weight.
-Patient being diuresed with Bumex 1 mg IV daily, patient was not taking a diuretic prior to admission
-Echo from 11/13/2024 was reviewed and then summarized above by me on 11/14/2024. The EF is preserved at 60% with only mild /MR
-Recheck proBNP, ordered by me. proBNP was 7290 on admission. Oxygenation has improved and he is now on RA
-Acute heart failure with preserved ejection fraction, proBNP 7290
-Outpatient dose of Lopressor 100 mg BID has been continued
-Patient is not chronically on an aldosterone antagonist, we will try adding especially in light of his hypokalemia which he states he had on and off in [place] as well before relocating to this area recently.
-Patient is new to Farxiga 10 mg daily this admission, the cost of that prescription was not specifically checked, but I can see that for Eliquis he is only paying about $12 a month. We will try using the Farxiga free 30-day prescription and we
will see him in the office in the interim to figure out what that final cost will be.
-Troponin was 0.125 on admission and trending down thereafter. There is no known history of CAD. No chest pain. No ischemic changes on ECG and echo without WMA. Patient should have an outpatient stress test.
-Patient with a known history of paroxysmal A-fib/flutter/tachycardia. ECGs this admission read by EP were called sinus tachycardia with RBBB. Patient is symptomatic with palpitations and this was investigated by a monitor as an outpatient within
the last month and plan following office visit 11/03/2024 was to stop his previous dose of nifedipine and to start a new dose of Cardizem CD 120 mg daily. Intermittent atrial arrhythmia seen on telemetry this admission and so instead of starting
Cardizem he was started on amiodarone 400 mg BID.
-New to amiodarone 400 mg BID this admission and QTc is 572 ms by ECG 11/14/2024 in the setting of ectopy and RBBB. We will likely continue with amiodarone 200 mg BID for 1 month upon discharge and then 200 mg daily thereafter
-Patient is also new to Eliquis 5 mg BID (age 74, Cre 0.9) this admission and appreciate help of CM on checking cost which is $12 a month
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 Patient awoke and nursing reported that he was confused and did not believe he was in the hospital. He was
noted to be tachycardic and when nursing tried to administer IV medication the patient refused. The patient reports feeling bombarded. Nursing notes reviewed and it sounds as though patient was agitated and confused. On the morning of 11/14/2024
at 8 AM the patient appears lucid and remembers events from the last several days, he can even remember medication changes made at his outpatient visit on 11/03/2024. Patient had mention to nursing last night that he wanted a knife, but did not
specifically say he wanted to harm himself. Agree with psychiatric evaluation to determine that he is not at risk for self-harm, but if otherwise he is feeling well would consider moving towards discharge 11/14/2024 or 11/15/2024.
HPI 11/13/2024:
Patient is a 74-year-old male with past medical history significant for hypertension, hyperlipidemia, PVCs, PAC, atrial tachycardia, left subclavian stenosis, type 2 diabetes, diabetic/peripheral neuropathy, prostate cancer status post XRT,
anxiety/depression, multi nodule goiter, right bundle branch block, chronic anemia and obesity who presented to emergency department 11/12/2024 with worsening shortness of breath, lower extremity edema, orthopnea/PND and weight gain. Seen in
cardiology office 11/03/2024 and was felt to have evidence of mild volume overload and was started on Lasix. Patient reports he only took 3 days of medication and felt weird and had some blurry vision so he stopped taking. He was also transition
from nifedipine to diltiazem due to complaints of palpitations and PACs/PVCs and atrial tachycardia on outpatient monitor. Patient reports he started taking this 3 days prior to admission. Chest x-ray showed increased interstitial markings
concerning for heart failure with small bilateral pleural effusions. proBNP elevated at 7290. EKG demonstrated sinus rhythm with right bundle branch block and PVCs. Troponin initially elevated at 0.125. Found to have electrolyte derangement with
hypokalemia with potassium of 3.1 and hypomagnesemia. Electrolytes with ongoing repletion. Patient was given IV Lasix 20 mg in emergency department then later that evening IV Bumex x 1. Patient developed asymptomatic tachycardia on monitor with
narrow complex rhythm with heart rates in the 150s. He was provided IV Lopressor with improvement of heart rate.
At time of this evaluation patient resting comfortably in bed on oxygen. Reports good diuretic response to IV diuresis. Feels edema is significantly better. Continues to have orthopnea and PND and had difficulty sleeping last night.
Progress Note - Insurance Sales Agent
Subjective
Date of Service: November 14, 2024
He feels well, palpitations have decreased, no chest pain
Objective
Labs:
11/14/24 04:09
11/14/24 04:09
Labs
Hgb 11.4 g/dL (13.0-18.0) L 11/14/24 04:09
Hct 34.6 % (39.0-52.0) L 11/14/24 04:09
Plt Count 231 10^3/uL (130-400) D 11/14/24 04:09
Sodium 139 mmol/L (135-145) 11/14/24 04:09
Potassium 3.0 mmol/L (3.5-5.1) L 11/14/24 04:09
BUN 14 mg/dl (9-20) 11/14/24 04:09
Creatinine 0.9 mg/dL (0.7-1.3) 11/14/24 04:09
Glucose 186 mg/dl (70-99) H 11/14/24 04:09
Troponins
11/12/24 11/13/24
14:15 06:16
Troponin I 0.125 H* 0.105 H*
Vital Signs and I&O:
Vital Signs
Temp Pulse Resp BP Pulse Ox
98.1 F 94 16 175/100 95
11/14/24 07:03 11/14/24 07:03 11/14/24 07:03 11/14/24 07:03 11/14/24 07:03
Vital Signs
Temp Pulse Resp BP Pulse Ox
98.1 F 94 16 175/100 95
11/14/24 07:03 11/14/24 07:03 11/14/24 07:03 11/14/24 07:03 11/14/24 07:03
Intake & Output
11/12/24 11/13/24 11/14/24 11/15/24
06:59 06:59 06:59 06:59
Intake Total 480 / 480
Output Total 1700 / 1700 600 / 600
Balance -1700 / -1700 -120 / -120
Physical Exam
Physical Exam
GEN: NAD. AAO x3, pleasant
LUNGS: RA. No audible wheeze
CV: SR with ectopy on tele.
EXT: Trace B/L LE edema
[2024-11-14 07:56] LABS: Glucose - Point of Care 161 mg/dl (70-99)
--- NOTE | 2024-11-14 08:45 | PTCARENOTE ---
Pt AAOX3 w/no signs of agitation or confusion. Pt calm & asking to be allowed to go to the BR for a BM. Bilat UE limb restraints removed. Pt ambulated w/assistance. Pt w/1:1 supervision at bed side.
[2024-11-14] MEDS: FARXIGA 10 MG PO (09:05)
[2024-11-14] MEDS: LOPRESSOR 100 MG PO ×2 (09:05→19:39)
[2024-11-14] MEDS: PACERONE 400 MG PO ×2 (09:05→19:39)
[2024-11-14] MEDS: NOVOLOG FLEXPEN-LOW RESISTANCE 1 UNITS SC ×2 (09:05→14:06)
[2024-11-14] MEDS: ELIQUIS 5 MG PO ×2 (09:05→19:39)
[2024-11-14] MEDS: LOW STRENGTH ASPIRIN 81 MG PO (09:05)
[2024-11-14] MEDS: HEPARIN SC ×3 (09:06→20:54)
[2024-11-14] MEDS: LIPITOR 40 MG PO (09:06)
[2024-11-14] MEDS: BUMEX 1 MG IV (09:08)
[2024-11-14] MEDS: FLUSH (NSS) 3 FLUSH IV (09:09)
[2024-11-14 10:35] LABS: Glycohemoglobin (HgbA1c) 6.8 % (4.0-5.6)
[2024-11-14 11:52] LABS: Glucose - Point of Care 195 mg/dl (70-99)
[2024-11-14] MEDS: FERRLECIT 110 MG IV (14:07)
--- NOTE | 2024-11-14 16:43 | W.PN.UPDATE ---
Update Note
Progress Note Update
Psychiatric Evaluation Dictated.
Patient is presently calm and cooperative. He still feels he was right in wanting to refuse the medication and that he was restrained unnecessarily. He however told me he felt he was in another facility last night . At this point fortunately he is
accepting treatment. He admits to being depressed but denies suicidal thoughts or plan. He is presently not agitated or psychotic, no loss of cognition.
Likely had an delirious episode.
Will F/U/
[2024-11-14 16:49] LABS: Glucose - Point of Care 138 mg/dl (70-99)
[2024-11-14 16:51] LABS: Magnesium 2.0 mg/dl (1.6-2.3)
[2024-11-14] MEDS: NOVOLOG FLEXPEN-LOW RESISTANCE SC (16:58)
--- NOTE | 2024-11-14 17:17 | PTCARENOTE ---
Pt remained AAOx3, calm throughout the shift. Pt w/no c/o CP or SOB. Pt had two family friends in to see him today & affect improved slightly. Psych consult completed & this RN provided therapeutic conversation through out the day. Pt expressed his
desire to apologize to previous shift RN & hoping to openly discuss his reasons for getting so upset overnight. Plan of care ongoing.
--- NOTE | 2024-11-14 21:13 | PTCARENOTE ---
Patient received at change of shift ambulating in the room. Upon entering the room to check 1900 vital signs the IV pump was noted to be beeping but was not attached to the patient. The patient reported that he did not know why the IV pump was going
off and he had put it in the bathroom. The primary and secondary tubing were disconnected from each other and the flush bag was empty however the potassium repletion that was ordered and hung by the previous shift at approximately 1630 according to
the MAR was not yet completed, it appears that about three quarters of the K+ repletion had infused. The patient was adamant that he was never attached to the IV this afternoon and stated he did not want to finish the IV infusion. The patient's LH
peripheral IV was intact. The monitor in the room was also noted to be turned off. The [employer] monitor was turned back on and the patient's telemetry pack was checked and is working appropriately. Once the monitor in the room was turned on vital
signs were obtained. The [employer] monitor appears to be working. [place] Collins was notified regarding these events. PO K+ repletion is presently ordered for later this shift.
Sinus rhythm/Sinus tach with frequent PVCs on telemetry. Oxygen saturation 97-98% on room air. The patient denies pain, denies feeling lightheaded or dizzy. Alert to self, place, and time. Verbalizes no needs at this time. Anxious to go home
tomorrow. Call [facility] within reach. Discussed purpose of PO medications, patient agreeable to take them. Care ongoing.
[2024-11-14 22:53] LABS: Glucose - Point of Care 131 mg/dl (70-99)
[2024-11-14] MEDS: APRESOLINE 10 MG IV (22:57)
[2024-11-14] MEDS: KCL 40 MEQ PO (22:57)
[2024-11-15] VITALS (10 sets, daily range): BP systolic 108–205; BP diastolic 53–94; BMI 29.6
[2024-11-15] MEDS: TRANDATE 10 MG IV (02:16)
--- NOTE | 2024-11-15 07:11 | W.PN.HOSP.TC ---
Today's Communication/Plan
-
Nifedipine added by cardio
Okay to switch Bumex to 1 mg p.o. daily
Continue Farxiga
Decrease amiodarone to 200 mg twice daily
Assessment / Plan
Assessment / Plan
74-year-old male past medical history of paroxysmal atrial flutter, hypertension, hyperlipidemia, diabetes, prostate cancer status post radiation, COPD, osteoarthritis, carotid artery stenosis, PAD, abdominal aortic aneurysm, presented with dry
nonproductive cough, LE edema and shortness of breath.
# Acute HFpEF exacerbation
# elevated trops
- Chest x-ray shows subtle increased interstitial markings within both lungs with small bilateral pleural effusions,
- Cardiac BNP 7290
- COVID-negative
- Check I's and O's, daily weights; stable
- Bumex 1 mg IV daily; transition to 1 mg p.o. daily
- continue Farxiga
- lopressor 100mg bid and amio 400mg bid per cardio for now; 200mg bid on dc for 1 month and daily afterwards
- echo results noted. Started on eliquis; d/c asa
Echo 11/13/24 with preserved ejection fraction and mild to moderate valvular disease.
Echocardiogram July 23, 2024:LVEF of 56%, mild mitral regurgitation and no other significant abnormalities.
# Elevated trops
- trops peaked 0.125:Suspect nonischemic myocardial injury secondary to acute heart failure exacerbation and atrial arrhythmias with rapid ventricular response
# Hypokalemia
# hypomagnesia
- Replete; goal to Keep K greater than 4, mag greater than 2
#Paroxysmal atrial flutter/atrial tachycardia with rapid ventricular response
-started eliquis
#Essential hypertension
- uncontrolled with current meds
-Nifedipine 60 mg added per cardio
#Hyperlipidemia
- continue home lipitor
#Type 2 diabetes
-hold metformin and glipizide.
-iss
#Prostate cancer status post radiation
#COPD
#Former smoker
#Osteoarthritis
#Carotid artery stenosis
#PAD
#Abdominal aortic aneurysm
#Chronic anemia: likely multifactorial
-start iron
Full code
DVT prophylaxis�heparin
Cardiac diet
Anticipated Discharge: Within 24 hours
Subjective/Interval History
-
Date of Service: November 15, 2024
Seen and examined at bedside.Offers no new complaints. Blood pressure remains elevated with SBP of 180s to 190s. Intermittent tachycardia.
Objective Data
-
Labs:
Laboratory Results
11/15/24
07:07
WBC Pending
Hgb Pending
Hct Pending
Plt Count Pending
Sodium Pending
Potassium Pending
Chloride Pending
Carbon Dioxide Pending
BUN Pending
Creatinine Pending
Glucose Pending
Calcium Pending
Vital Signs:
Vital Signs
Temp Pulse Resp BP Pulse Ox
97.6 F 69 16 150/68 97
11/15/24 02:11 11/15/24 06:00 11/15/24 02:11 11/15/24 04:00 11/15/24 02:11
I&O
11/14/24 11/15/24 11/16/24
06:59 06:59 06:59
Intake Total 480 / 480
Output Total 600 / 600
Balance -120 / -120
Review of Systems
-
History Source: Patient
All other systems: Reviewed and negative (unless documented)
Physical Exam
-
General: Well Developed and No Apparent Distress
HEENT: Normocephalic and Moist Mucous Membranes
Respiratory: Non Labored Respirations and Decreased Breath Sounds
Cardiac: S1/S2 and Tachycardic
GI: Soft and Nontender
Musculoskeletal: Edema, Right Lower Extrem and Edema, Left Lower Extrem
Skin: Warm and Dry
Neuro: Awake, Alert and Oriented
Psych: Calm
Data Reviewed
-
Labs: Labs Reviewed by me, Discussed with Physician and Discussed with Patient
[2024-11-15] MEDS: BUMEX 1 MG IV (07:49)
[2024-11-15] MEDS: LOPRESSOR 100 MG PO (07:50)
[2024-11-15] MEDS: FARXIGA 10 MG PO (07:50)
[2024-11-15] MEDS: NOVOLOG FLEXPEN-LOW RESISTANCE 3 UNITS SC (07:51)
[2024-11-15] MEDS: ELIQUIS 5 MG PO (07:51)
[2024-11-15 07:53] LABS: Glucose - Point of Care 266 mg/dl (70-99)
[2024-11-15] MEDS: PACERONE 400 MG PO (07:53)
[2024-11-15] MEDS: LIPITOR 40 MG PO (07:53)
--- NOTE | 2024-11-15 08:11 | W.PN.CARDCBS ---
Today's Communication / Plan
-
Having less atrial arrhythmias. Continue amiodarone. Will decrease dose to 200 mg p.o. twice daily today.
Continue metoprolol 100 mg p.o. twice daily.
He has diuresed well. Okay to switch Bumex to 1 mg p.o. daily.
Blood pressure remains elevated. Will add back nifedipine 60 mg daily. Continue metoprolol. Another option would be to add spironolactone with low potassium
Replete potassium.
Mental status is much improved with no further delirium
Continue Farxiga 10 mg daily.
If blood pressure is improved significantly would be okay for discharge today.
Impression / Plan
-
PCP: Marianne Pacheco
Teacher Public Health: Dominique Shaw
Impression:
Presented with worsening shortness of breath, lower extremity edema, orthopnea/PND and weight gain 11/12/2024
Acute heart failure with preserved ejection fraction, proBNP 7290
Abnormal troponin, peak 0.125
Hypokalemia
Hypomagnesemia
Paroxysmal atrial flutter/atrial tachycardia with rapid ventricular response
Paroxysmal atrial flutter
Paroxysmal atrial tachycardia
PVCs/PACs
Right bundle branch block
Hypertension
Hyperlipidemia
Left subclavian stenosis
Type 2 diabetes
Diabetic/peripheral neuropathy
Prostate cancer status post XRT 2014
Anxiety depression
Multinodular goiter
Chronic anemia
7 day Outpatient monitor starting June 26, 2024: Predominantly normal sinus rhythm, 104 episodes of nonsustained atrial tachycardia, 7% PACs, 9% PVCs with 33 patient triggered symptom events correlating with atrial tachycardia PACs and PVCs.
Echo from 2022: LVEF 50-55% mild MR, mild LAE, trace TR, mild to moderate aortic sclerosis
Echocardiogram 07/23/24:LVEF of 56%, mild mitral regurgitation and no other significant abnormalities.
Echo 11/13/2024: EF 60%, normal RV size and function, mild , mild MR, mild to moderate TR with PAP 52 mmHg
Plan:
-Presented 11/12/2024 with worsening shortness of breath, lower extremity edema, orthopnea/PND and weight gain.
-Weight is down about 10 pounds from admission.
-Patient being diuresed with Bumex 1 mg IV daily, patient was not taking a diuretic prior to admission
-Replete potassium.
-Blood pressure remains elevated. Adding nifedipine 60 mg daily.Another option would be to add spironolactone
-Echo from 11/13/2024 was reviewed and then summarized above by me on 11/14/2024. The EF is preserved at 60% with only mild /MR
-proBNP improved and down to 4000. Was over 7000 upon admission.
-Acute heart failure with preserved ejection fraction, proBNP 7290
-Outpatient dose of Lopressor 100 mg BID has been continued
-Patient is new to Farxiga 10 mg daily this admission, the cost of that prescription was not specifically checked, but I can see that for Eliquis he is only paying about $12 a month. We will try using the Farxiga free 30-day prescription and we
will see him in the office in the interim to figure out what that final cost will be.
-Troponin was 0.125 on admission and trending down thereafter. There is no known history of CAD. No chest pain. No ischemic changes on ECG and echo without WMA. Patient should have an outpatient stress test.
-Patient with a known history of paroxysmal A-fib/flutter/tachycardia. ECGs this admission read by EP were called sinus tachycardia with RBBB. Patient is symptomatic with palpitations and this was investigated by a monitor as an outpatient within
the last month and plan following office visit 11/03/2024 was to stop his previous dose of nifedipine and to start a new dose of Cardizem CD 120 mg daily. Intermittent atrial arrhythmia seen on telemetry this admission and so instead of starting
Cardizem he was started on amiodarone 400 mg BID.
- We will likely continue with amiodarone 200 mg BID for 1 month upon discharge and then 200 mg daily thereafter
-Patient is also new to Eliquis 5 mg BID (age 74, Cre 0.9) this admission and appreciate help of CM on checking cost which is $12 a month
- No further episodes of delirium and this is improved overnight.
HPI 11/13/2024:
Patient is a 74-year-old male with past medical history significant for hypertension, hyperlipidemia, PVCs, PAC, atrial tachycardia, left subclavian stenosis, type 2 diabetes, diabetic/peripheral neuropathy, prostate cancer status post XRT,
anxiety/depression, multi nodule goiter, right bundle branch block, chronic anemia and obesity who presented to emergency department 11/12/2024 with worsening shortness of breath, lower extremity edema, orthopnea/PND and weight gain. Seen in
cardiology office 11/03/2024 and was felt to have evidence of mild volume overload and was started on Lasix. Patient reports he only took 3 days of medication and felt weird and had some blurry vision so he stopped taking. He was also transition
from nifedipine to diltiazem due to complaints of palpitations and PACs/PVCs and atrial tachycardia on outpatient monitor. Patient reports he started taking this 3 days prior to admission. Chest x-ray showed increased interstitial markings
concerning for heart failure with small bilateral pleural effusions. proBNP elevated at 7290. EKG demonstrated sinus rhythm with right bundle branch block and PVCs. Troponin initially elevated at 0.125. Found to have electrolyte derangement with
hypokalemia with potassium of 3.1 and hypomagnesemia. Electrolytes with ongoing repletion. Patient was given IV Lasix 20 mg in emergency department then later that evening IV Bumex x 1. Patient developed asymptomatic tachycardia on monitor with
narrow complex rhythm with heart rates in the 150s. He was provided IV Lopressor with improvement of heart rate.
At time of this evaluation patient resting comfortably in bed on oxygen. Reports good diuretic response to IV diuresis. Feels edema is significantly better. Continues to have orthopnea and PND and had difficulty sleeping last night.
Progress Note - Teacher Public Health
Subjective
Date of Service: November 15, 2024
Feels well. Denies chest pains or shortness of breath. Much less agitated. Blood pressure was improved overnight but back up this morning.
Objective
Labs:
Labs
Hgb 11.4 g/dL (13.0-18.0) L 11/14/24 04:09
Hct 34.6 % (39.0-52.0) L 11/14/24 04:09
Plt Count 231 10^3/uL (130-400) D 11/14/24 04:09
Sodium 139 mmol/L (135-145) 11/14/24 04:09
Potassium 3.0 mmol/L (3.5-5.1) L 11/14/24 04:09
BUN 14 mg/dl (9-20) 11/14/24 04:09
Creatinine 0.9 mg/dL (0.7-1.3) 11/14/24 04:09
Glucose 186 mg/dl (70-99) H 11/14/24 04:09
Troponins
11/12/24 11/13/24
14:15 06:16
Troponin I 0.125 H* 0.105 H*
Vital Signs and I&O:
Vital Signs
Temp Pulse Resp BP Pulse Ox
98 F 83 17 192/92 96
11/15/24 07:00 11/15/24 07:50 11/15/24 07:00 11/15/24 07:50 11/15/24 07:00
Vital Signs
Temp Pulse Resp BP Pulse Ox
98 F 83 17 192/92 96
11/15/24 07:00 11/15/24 07:50 11/15/24 07:00 11/15/24 07:50 11/15/24 07:00
Intake & Output
11/13/24 11/14/24 11/15/24 11/16/24
06:59 06:59 06:59 06:59
Intake Total 480 / 480
Output Total 1700 / 1700 600 / 600
Balance -1700 / -1700 -120 / -120
Physical Exam
Physical Exam
GEN: No distress, awake, Ox3
HEENT: supple, anicteric, mmm
LUNGS: CTA, no wheezes/rales
CV: Reg, S1/S2, 1/6 syst LSB, no gallop
ABD: soft, BS+, NT/ND
EXT: No edema
NEURO: Gross non-focal
SKIN: No rash
[2024-11-15] MEDS: PROCARDIA XL (EXTENDED RELEASE) 60 MG PO (08:46)
[2024-11-15 10:03] LABS: Hematocrit 34.7 % (39.0-52.0); Hemoglobin 11.3 g/dL (13.0-18.0); Mean Corp Hgb Conc. 32.6 g/dL (33.0-37.0); Mean Corpuscular Volume 77.1 fL (80.0-94.0); Platelet Count 262 10^3/uL (130-400); Red Cell Dist. Width 16.7 % (11.5-14.5)
[2024-11-15 10:44] LABS: Blood Urea Nitrogen 16 mg/dl (9-20); Calcium 10.0 mg/dl (8.4-10.2); Carbon Dioxide 24 mmol/L (22-30); Chloride 105 mmol/L (98-107); Estimated Creatinine Clearance 59 ml/min; Glucose 230 mg/dl (70-99); Potassium 3.5 mmol/L (3.5-5.1); Sodium 140 mmol/L (135-145); eGFR > 60.00
--- NOTE | 2024-11-15 12:02 | W.DCSUMMARY ---
Documented by User: Nhan Clayton MD, Resident 11/15/24 12:35
Discharge Summary
Discharge Data
Date of Admission: 11/12/24
Date of Discharge: 11/15/24
-
Pending Results: No
Hospital Course
Discharging Physician : Nhan Clayton MD ; Jhon Aguilar DO
Disposition : Home
Primary care physician : Marianne Pacheco
Principal Discharge diagnosis : Acute on chronic HFpEF, paroxysmal a flutter, elevated troponin, microcytic anemia
Chronic Discharge diagnosis : Essential hypertension, hyperlipidemia, type 2 diabetes, prostate cancer s/p radiation, COPD, former smoker, osteoarthritis, carotid artery stenosis, PAD, abdominal aortic aneurysm, chronic anemia
Hospital Course : 74-year-old male past medical history of paroxysmal atrial flutter, hypertension, hyperlipidemia, diabetes, prostate cancer status post radiation, COPD, osteoarthritis, carotid artery stenosis, PAD, abdominal aortic aneurysm,
presented with dry nonproductive cough and shortness of breath.
1-Acute HFpEF exacerbation
Initial evaluation showed proBNP of 7290 and chest x-ray with increased interstitial marking within both lungs. Suspicious of acute HFpEF exacerbation duration. He was admitted and monitored daily ins and outs including daily weights. He was
started on IV Bumex as well which was later transitioned to p.o. upon discharge. He was also started on Farxiga. Cardiology was consulted was started on Lopressor 100 mg twice daily and and given that he also had elevated troponin as well as
intermittent atrial flutter with PVCs he was started on amiodarone 400 mg twice daily and which was later changed to 200 mg p.o. twice daily and he was instructed to continue that for 1 month and change it to once daily after 1 month. He also had
an echo results as below. Given his arrhythmia he was also started on Eliquis prior to admission he was using aspirin which was discontinued and patient is aware of that.
2-Elevated troponin
trops peaked 0.125:Suspect nonischemic myocardial injury secondary to acute heart failure exacerbation and atrial arrhythmias with rapid ventricular response
3-Hypokalemia
hypomagnesia
Initial labs showed that his potassium was 3.1 and which intermittently remained around 3.0 he received multiple doses of repletion. Upon discharge he was instructed to continue the 10 mEq on daily basis and follow-up with a repeat BMP with the PCP.
4-Paroxysmal atrial flutter/atrial tachycardia with rapid ventricular response
was started on eliquis. Telemetry shows intermittent atrial arrhythmia. manager file helped with checking the cost for Eliquis.
5-Essential hypertension
His blood pressure was intermittently very high requiring periodic IV labetalol and Lopressor and fortunately blood pressure was was better controlled after initiation of nifedipine in addition to metoprolol and it was continued on discharge.
Recommended patient to maintain a BP log and discuss that with outpatient preschool teacher's assistant and family doctor appointment.
6-Delirium
During his stay at the hospital he had 1 episode of delirium requiring 1-1 and psych was consulted. At the time of discharge she denies any suicidal or homicidal ideation and he is alert oriented and awake. Psych recommended psychotherapy upon
discharge however he was not interested in that. His mentation was at baseline at the time of discharge.
Important imaging findings : XRAY Chest 11/12/24 : IMPRESSION:
Subtle increased interstitial markings within both lungs with small bilateral pleural effusions. Main differential considerations of interstitial pulmonary edema and bilateral interstitial pneumonia.
Procedure findings : ECHO 11/13/24:
SUMMARY
1. Normal LV size. Left ventricular ejection fraction is normal with an ejection fraction of 60 % by Warner's biplane method of discs.
2. Right ventricular size and systolic function are within normal limits.
3. Mild aortic valve stenosis.
4. Mild mitral valve regurgitation.
5. Mild to moderate tricuspid regurgitation. Estimated pulmonary artery pressure of 52 mmHg assuming a right atrial pressure of 3 mmHg.
6. Compared to a prior transthoracic echocardiogram study from 07/23/24 Pulmonary artery pressure has increased from 26 to 52 mmHg.
Discharge Plan
-
Patient Disposition: Home (Routine Discharge)
Discharge Diagnosis/Procedures: Acute on chronic HFpEF, paroxysmal a flutter, elevated troponin, microcytic anemia, hypertension
Condition: Fair
Diet: Low Cholesterol
Activity: No restrictions
Driving Restrictions: As prior to admission
Bathing Restrictions: None
Blood Work: BMP in 5 days
Instructions: *[facility] Heart Failure Instructions
Referrals:
Dominique Shaw MD [Active, Cardiology] - in one to two weeks
Marianne Pacheco CRNP [Family Provider, Family Practice] - in less than 1 week
Additional Discharge Medication Instructions: Take amiodarone 200 mg 1 tablet by mouth twice daily for 1 month and then decrease to once daily
Take bumetanide 1 mg 1 tablet by mouth daily
Take dapagliflozin 10 mg 1 tablet by mouth daily
Take Eliquis 5 mg 1 tablet by mouth twice daily
Take nifedipine 60 mg 1 tablet by mouth daily
Continue your home medications including atorvastatin, gabapentin, glipizide, metformin, metoprolol tartrate 100 mg twice daily, tamsulosin.
Discontinue aspirin and diltiazem.
Complete BMP in 5 days.
Follow-up with your outpatient preschool teacher's assistant within 1 to 2 weeks
Please follow-up with your family doctor within 1 week to discuss the hospital stay as well as discussed the results of blood test (BMP.)
Prescriptions:
New
amiodarone [Pacerone] 200 mg Tablet
200 mg PO BID Qty: 60 0RF
Eliquis 5 mg Tablet
5 mg PO BID Qty: 60 0RF
nifedipine 60 mg Tablet Extended Release
60 mg PO DAILY Qty: 30 0RF
dapagliflozin propanediol 10 mg Tablet
10 mg PO DAILY Qty: 30 0RF
bumetanide 1 mg tablet
1 mg PO DAILY Qty: 30 0RF
potassium chloride 10 mEq capsule, extended release
10 meq PO DAILY Qty: 14 0RF
Continued
atorvastatin 40 mg Tablet
40 mg PO DAILY Qty: 0 0RF
metoprolol tartrate 100 mg Tablet
100 mg PO BID Qty: 0 0RF
tamsulosin 0.4 mg Capsule
0.4 mg PO DAILY Qty: 0 0RF
metformin 1,000 mg Tablet
1,000 mg PO BID Qty: 0 0RF
gabapentin 300 mg Capsule
300 mg PO BID Qty: 0 0RF
glipizide 5 mg Tablet
5 mg PO DAILY Qty: 0 0RF
Discontinued
aspirin 325 mg Tablet
325 mg PO DAILY
diltiazem HCl 120 mg Capsule,Extended Release 24 Hr
120 mg PO DAILY
Discharge Orders:
Discharge Patient (As Directed); Ordered 11/15/24
Ordered By: Nhan Clayton
Care Plan Goals
Care Plan Goals:
Problem: Readiness for enhanced knowledge related to diagnosis and treatment plan
Goal: Understand your diagnosis and treatment plan needs, including medications if applicable.
Instructions: Know your diagnosis, underlying causes and treatment plan options, including medications if applicable. Consult with your health care team to learn about your diagnosis and treatment plan, including medications if applicable.
Discharge Date and Time
Discharge Date/Time: 11/15/24 12:00
Print Language: URDU

Documented by User: Jhon Aguilar DO 11/15/24 16:24
Discharge Summary
Discharge Data
Date of Admission: 11/12/24
Date of Discharge: 11/15/24
Total time spent discharging patient (in min): 31
Discharge Plan
-
Patient Disposition: Home (Routine Discharge)
Discharge Diagnosis/Procedures: Acute on chronic HFpEF, paroxysmal a flutter, elevated troponin, microcytic anemia, hypertension
Condition: Fair
Diet: Low Cholesterol
Activity: No restrictions
Driving Restrictions: As prior to admission
Bathing Restrictions: None
Blood Work: BMP in 5 days
Instructions: *[facility] Heart Failure Instructions
Referrals:
Dominique Shaw MD [Active, Cardiology] - in one to two weeks
Marianne Pacheco CRNP [Family Provider, Family Practice] - in less than 1 week
Additional Discharge Medication Instructions: Take amiodarone 200 mg 1 tablet by mouth twice daily for 1 month and then decrease to once daily
Take bumetanide 1 mg 1 tablet by mouth daily
Take dapagliflozin 10 mg 1 tablet by mouth daily
Take Eliquis 5 mg 1 tablet by mouth twice daily
Take nifedipine 60 mg 1 tablet by mouth daily
Continue your home medications including atorvastatin, gabapentin, glipizide, metformin, metoprolol tartrate 100 mg twice daily, tamsulosin.
Discontinue aspirin and diltiazem.
Complete BMP in 5 days.
Follow-up with your outpatient preschool teacher's assistant within 1 to 2 weeks
Please follow-up with your family doctor within 1 week to discuss the hospital stay as well as discussed the results of blood test (BMP.)
Prescriptions:
New
amiodarone [Pacerone] 200 mg Tablet
200 mg PO BID Qty: 60 0RF
Eliquis 5 mg Tablet
5 mg PO BID Qty: 60 0RF
nifedipine 60 mg Tablet Extended Release
60 mg PO DAILY Qty: 30 0RF
dapagliflozin propanediol 10 mg Tablet
10 mg PO DAILY Qty: 30 0RF
bumetanide 1 mg tablet
1 mg PO DAILY Qty: 30 0RF
potassium chloride 10 mEq capsule, extended release
10 meq PO DAILY Qty: 14 0RF
Continued
atorvastatin 40 mg Tablet
40 mg PO DAILY Qty: 0 0RF
metoprolol tartrate 100 mg Tablet
100 mg PO BID Qty: 0 0RF
tamsulosin 0.4 mg Capsule
0.4 mg PO DAILY Qty: 0 0RF
metformin 1,000 mg Tablet
1,000 mg PO BID Qty: 0 0RF
gabapentin 300 mg Capsule
300 mg PO BID Qty: 0 0RF
glipizide 5 mg Tablet
5 mg PO DAILY Qty: 0 0RF
Discontinued
aspirin 325 mg Tablet
325 mg PO DAILY
diltiazem HCl 120 mg Capsule,Extended Release 24 Hr
120 mg PO DAILY
Discharge Orders:
Discharge Patient (As Directed); Ordered 11/15/24
Ordered By: Nhan Clayton
Care Plan Goals
Care Plan Goals:
Problem: Readiness for enhanced knowledge related to diagnosis and treatment plan
Goal: Understand your diagnosis and treatment plan needs, including medications if applicable.
Instructions: Know your diagnosis, underlying causes and treatment plan options, including medications if applicable. Consult with your health care team to learn about your diagnosis and treatment plan, including medications if applicable.
Discharge Date and Time
Discharge Date/Time: 11/15/24 12:00
Print Language: URDU
[2024-11-15] MEDS: KCL 40 MEQ PO (12:22)
--- NOTE | 2024-11-15 13:00 | PTCARENOTE ---
PT reports to RN understanding all discharge instructions, medications, & future Dr. appointments. VSS; PIV removed; tele pack removed; PT d/c w/ sister in law; traveled to awaiting car via wheelchair w/ RN
== END 2024-11-15 12:00 | disposition home or self-care (01) | DRG 291 ==
LOC: IVU 19:06
PROVIDERS: Emergency Medicine; Registered Nurse; ADMITTING PHYSICIAN Hospitalist; ATTENDING PHYSICIAN Internal Medicine; CONSULT PHYSICIAN Internal Medicine Cardiovascular Disease; CONSULT PHYSICIAN Psychiatry & Neurology Psychiatry; EMERGENCY PHYSICIAN Emergency Medicine; FAMILY PHYSICIAN Nurse Practitioner Family
DX: I11.0 Hypertensive heart disease with heart failure (principal); I50.33 Acute on chronic diastolic (congestive) heart failure; I48.92 Unspecified atrial flutter; I47.19 Other supraventricular tachycardia; D50.9 Iron deficiency anemia, unspecified; R79.89 Other specified abnormal findings of blood chemistry; E78.5 Hyperlipidemia, unspecified; E83.42 Hypomagnesemia; E87.6 Hypokalemia; J44.9 Chronic obstructive pulmonary disease, unspecified; M19.90 Unspecified osteoarthritis, unspecified site; I65.29 Occlusion and stenosis of unspecified carotid artery; E11.51 Type 2 diabetes mellitus with diabetic peripheral angiopathy without gangrene; I71.40 Abdominal aortic aneurysm, without rupture, unspecified; E04.2 Nontoxic multinodular goiter; E11.42 Type 2 diabetes mellitus with diabetic polyneuropathy; E66.9 Obesity, unspecified; F32.A Depression, unspecified; I07.1 Rheumatic tricuspid insufficiency; Z11.52 Encounter for screening for COVID-19; Z63.4 Disappearance and death of family member; Z68.29 Body mass index [BMI] 29.0-29.9, adult; Z79.82 Long term (current) use of aspirin; Z79.84 Long term (current) use of oral hypoglycemic drugs; Z85.46 Personal history of malignant neoplasm of prostate; Z87.891 Personal history of nicotine dependence; Z79.899 Other long term (current) drug therapy; Z92.3 Personal history of irradiation
CPT/HCPCS: 71046; 80048; 80053; 82607; 82728; 82746; 82962; 83036; 83540; 83550; 83735; 83880; 84484; 85025; 85027; 86803; 87811; 93005; 93306; 96374; 96375; 97162; 99291; J2916